=== PATIENT | male | born 1985 | race Hispanic/Latino ===

== ENCOUNTER 2016-12-25 15:50 | Emergency (ER) | payer SELFPAY ==
--- NOTE | 2016-12-25 17:49 | Emergency Department Report ---
Chief Complaint: Upper Respiratory Infection Stated Complaint: FEELING SICK - HPI History of Present Illness: 31-year-old male past medical history smoker, poorly controlled HIV with high viral load and CD4 count less than 60 as per patient, history of tuberculosis, history of psychiatric illness presents with complaint of 2-3 days of progressively worsening cough, congestion malaise, chills and generalized weakness. Patient states he has been on therapy for tuberculosis but has not taken medicine consistently, also states he has not been taking his HAART therapy consistently either. States he has been coughing and is getting progressively worse. - ROS Review of Systems: History of HIV and tuberculosis, not taking medicines consistently, 2-3 days of worsening malaise - Exam Vital Signs: Vital Signs 12/25/16 17:04 Temperature 98.5 F Pulse Rate 66 Respiratory 20 Rate Blood Pressure 128/77 O2 Sat by Pulse 97 Oximetry Physical Exam: Patient is awake and alert, appears slightly disheveled, possible rhonchi in lower lung mauro on auscultation MSE screening note: Focused history and physical exam performed. Due to findings the following was ordered: Screening Assessment/Plan/Differential Dx: Viral syndrome versus concern for cough with history of tuberculosis in immunocompromised patient 1- This initial assessment/diagnostic orders/clinical plan/ treatment(s) is/are subject to change based on pt's health status, clinical progression and re- assessment by fellow clinical providers in the ED. Further treatment and workup at subsequent clinical provers discretion. Patient/guardians urged not to elope from ED as their condition may be serious if not clinically assessed and managed. 2-CBC, LFTs, influenza swab, chest x-ray, lactic acid 3-as patient has HIV with poorly controlled lab values will add LDH for screening for PCP pna 4- ED Disposition for MSE Condition: Stable
[2016-12-25 18:13] LABS: Basophils % (Auto) 0.2 % (0.0-1.8); Eosinophils % (Auto) 4.1 % (0.0-4.3); Hematocrit 38.4 % (35.5-45.6); Hemoglobin 12.7 gm/dl (11.8-15.2); Mean Corpuscular HGB Conc 33 % (32-34); Mean Corpuscular Hemoglobin 31 pg (28-32); Mean Corpuscular Volume 93 fl (84-94); Platelet Count 261 K/mm3 (140-440); Red Blood Count 4.13 M/mm3 (3.65-5.03); Red Cell Distribution Width 16.4 % (13.2-15.2); White Blood Count 4.1 K/mm3 (4.5-11.0)
[2016-12-25 18:16] LABS: Alanine Aminotransferase 13 units/L (7-56); Albumin 3.7 g/dL (3.9-5); Albumin/Globulin Ratio 0.9 %; Alkaline Phosphatase 62 units/L (35-129); Anion Gap 17 mmol/L; BUN/Creatinine Ratio 15; Blood Urea Nitrogen 12 mg/dL (9-20); Calcium 8.6 mg/dL (8.4-10.2); Carbon Dioxide 27 mmol/L (22-30); Chloride 101.9 mmol/L (98-107); Glucose 72 mg/dL (75-100); Potassium 4.5 mmol/L (3.6-5.0); Sodium 141 mmol/L (137-145); Total Protein 7.6 g/dL (6.3-8.2)
[2016-12-25 18:22] LABS: Bilirubin,Direct < 0.2 mg/dL (0-0.2)
--- NOTE | 2016-12-26 01:21 | Emergency Department Report ---
HPI - General Chief Complaint: Upper Respiratory Infection Time Seen by Provider: 12/25/16 23:46 - HPI HPI: This is a 31-year-old male presents to the emergency department from [place] with complaint of a 2-3 day history of some head and chest congestion , chills, sore throat and a productive cough. Patient says that he is still dealing with some residual "noncontagious tuberculosis." He has a history of HIV and says that he is usually compliant with his HIV medications but has been out of them. He follows up with a doctor Kumar for infectious disease. No recent travel or sick contacts at home. He came in by ambulance. He has a psychiatric history of bipolar disorder. He denies any chest pain, shortness of breath, nausea, vomiting or any confirmed fever. He has not taken anything for his symptoms prior to presentation. ED Past Medical Hx - Past Medical History Hx Psychiatric Treatment: Yes Hx HIV: Yes - Surgical History Past Surgical History?: No - Social History Smoking Status: Current Every Day Smoker Substance Use Type: Cocaine, Marijuana - Medications Home Medications: Home Medications Medication Instructions Recorded Confirmed Last Taken Type ALBUTEROL Inhaler [ProAir HFA 2 puff IH QID PRN #1 inhalation 12/26/16 Unknown Rx Inhaler] Benzonatate [Tessalon Perles] 100 mg PO Q8HR PRN #20 capsule 12/26/16 Unknown Rx Dolutegravir Sodium [Tivicay] 50 mg PO QDAY #30 tablet 12/26/16 Unknown Rx Emtricitabin/Tenofovir [TRUVADA 1 tab PO QDAY #30 tablet 12/26/16 Unknown Rx 200-300 mg] ED Review of Systems ROS: Stated complaint: FEELING SICK Other details as noted in HPI Comment: All other systems reviewed and negative Constitutional: denies: chills, fever Eyes: denies: eye pain, eye discharge, vision change ENT: throat pain, congestion. denies: ear pain Respiratory: cough, wheezing Cardiovascular: denies: chest pain, palpitations Gastrointestinal: denies: abdominal pain, vomiting Genitourinary: denies: urgency, dysuria Musculoskeletal: myalgia. denies: joint swelling Skin: denies: rash, lesions Neurological: denies: headache, weakness Physical Exam - Physical Exam Vital Signs: Vital Signs 12/25/16 17:04 Temperature 98.5 F Pulse Rate 66 Respiratory 20 Rate Blood Pressure 128/77 O2 Sat by Pulse 97 Oximetry Physical Exam: GENERAL: The patient is well-developed well-nourished. HENT: Normocephalic. Atraumatic. Patient has moist mucous membranes. Oropharynx is clear. EYES: Extraocular motions are intact. Pupils equal reactive to light bilaterally. NECK: Supple. Trachea is midline. CHEST/LUNGS: Clear to auscultation. There is no tachypnea. The patient does have a hacking cough. There is no respiratory distress noted. HEART/CARDIOVASCULAR: Regular. There is no tachycardia. There is no gallop rub or murmur. ABDOMEN: Abdomen is soft, nontender. Patient has normal bowel sounds. There is no abdominal distention. SKIN: Skin is warm and dry. NEURO: The patient is awake, alert, and oriented. The patient is cooperative. The patient has no focal neurologic deficits. The patient has normal speech. MUSCULOSKELETAL: There is no tenderness or deformity. There is no limitation range of motion. There is no evidence of acute injury. ED Course Vital Signs 12/25/16 17:04 Temperature 98.5 F Pulse Rate 66 Respiratory 20 Rate Blood Pressure 128/77 O2 Sat by Pulse 97 Oximetry ED Medical Decision Making - Lab Data Result diagrams: 12/25/16 17:37 12/25/16 17:37 - Radiology Data Radiology results: image reviewed interpreted by me: Chest x-ray does not show any acute process. There are no pleural effusions, obvious pneumonia and there is no pneumothorax. - Medical Decision Making 31-year-old male with HIV presents with a few days of some chest and head congestion and a hacking cough. Chest x-ray does not show any obvious pneumonia or any other acute process. The patient says that he was already being treated for some type of noncontagious tuberculosis. Vital signs stable including being afebrile and no hypoxia. The rest of his labs have been unremarkable and do not show any etiology of symptoms. Since he does not have any leukocytosis or fever and there is no obvious source of bacterial infection seen, I did not feel that the patient required antibiotics at this time. However he will be given an albuterol inhaler, Tessalon Perles for his cough and he will get a refill of his HIV medications. He says he has good follow-up with infectious disease and has been encouraged to see them. He will return to the ER with any worsening of symptoms or any acute distress. - Differential Diagnosis HIV, AIDS, URI, pneumonia Critical Care Time: No Critical care attestation.: If time is entered above; I have spent that time in minutes in the direct care of this critically ill patient, excluding procedure time. ED Disposition Clinical Impression: HIV (human immunodeficiency virus infection), Chest congestion Upper respiratory infection Qualifiers: URI type: unspecified URI Qualified Code(s): J06.9 - Acute upper respiratory infection, unspecified Disposition: DC- TO HOME OR SELFCARE Is pt being admited?: No Condition: Stable Instructions: Upper Respiratory Infection (ED) Additional Instructions: Please follow up with a primary care physician and your infectious disease doctor. Return to the emergency Department with any worsening of your symptoms or any acute distress. Prescriptions: ALBUTEROL Inhaler [ProAir HFA Inhaler] 2 puff IH QID PRN #1 inhalation PRN Reason: Shortness Of Breath Benzonatate [Tessalon Perles] 100 mg PO Q8HR PRN #20 capsule PRN Reason: Cough Dolutegravir Sodium [Tivicay] 50 mg PO QDAY #30 tablet Emtricitabin/Tenofovir [TRUVADA 200-300 mg] 1 tab PO QDAY #30 tablet Referrals: PRIMARY CAREMD [Primary Care Provider] - 3-5 Days KITA WEINER MD [Staff Physician] - 3-5 Days [facility] [Outside] - 3-5 Days Time of Disposition: 04:06
[2016-12-26 04:49] VITALS: BP 115/84
--- NOTE | 2016-12-26 10:49 | XRay Report ---
ROUTINE CHEST, TWO VIEWS: HISTORY: Cough. No comparison. The left hilum is slightly prominent compared to the right side. Although this could represent confluence of vessels and overlying bronchi, left hilar lymph nodes are difficult to exclude on chest x-ray. The lungs are clear. No pleural effusion or pneumothorax. Normal heart size. Normal bony structures. IMPRESSION: Slightly prominent left hilum. Question mild left hilar adenopathy or infiltrate. Consider further evaluation with CT chest with contrast.
== END 2016-12-26 04:43 | disposition home or self-care (01) ==
LOC: ED 15:50
DX: J06.9 Acute upper respiratory infection, unspecified (principal); F17.200 Nicotine dependence, unspecified, uncomplicated; F14.10 Cocaine abuse, uncomplicated; F12.10 Cannabis abuse, uncomplicated; Z21 Asymptomatic human immunodeficiency virus [HIV] infection status
CPT/HCPCS: 36415; 71020; 80048; 80074; 82140; 83615; 83735; 85025; 87400; 87491; 99284; G0480; 80320